=== PATIENT | male | born 1945 | race Caucasian/White ===

== ENCOUNTER 2016-07-21 22:40 | Emergency (ER) | payer OTHER ==
--- NOTE | 2016-07-21 22:51 | CPEKG ---
Heart Rate: 64 RR Interval: 938 P-R Interval: 204 QRSD Interval: 122 QT Interval: 420 QTC Interval: 434 P [place]: 33 QRS [place]: -59 T Wave [place]: 17 EKG Severity - ABNORMAL ECG - EKG Impression: SINUS RHYTHM EKG Impression: Right ventricular conduction defect EKG Impression: Poor R-wave progression EKG Impression: Low voltage standard leads Electronically Signed By: Blair Pacheco 23-Jul-2016 15:02:44
[2016-07-21 22:56] VITALS: RESP 16; TEMP 98.1
--- NOTE | 2016-07-21 23:28 | EDPHY ---
H & P Stated Complaint: Epigastric pain Time Seen by Provider: 07/21/16 23:05 HPI/ROS: HPI The patient presents with epigastric discomfort which has been present since this morning upon awakening. His pain is described as a soreness and an ache it has been constant, it is moderate in severity, does not have any radiation. It is not associated with any shortness of breath, nausea or vomiting. He has no prior history of similar. He has been feeling well otherwise.. He underwent heart scan on June 10, 2016, total calcium score was 645, which qualifies as extensive plaque burden and likelihood of at least 1 significant coronary stenosis. He has never had a cardiac catheterization REVIEW OF SYSTEMS Constitutional: No fever, no chills. Eyes: No discharge. ENT: No sore throat. Cardiovascular: No chest pain, no palpitations. Respiratory: No cough, no shortness of breath. Gastrointestinal: No abdominal pain, no vomiting. Genitourinary: No hematuria. Musculoskeletal: No back pain. Skin: No rashes. Neurological: No headache. PMHx: Hypertension, CAD based on CT scan, hypercholesterolemia obesity, obstructive sleep apnea, GERD Followed by Dr. Hwang at [facility] Hx: Previous smoker, occasional alcohol use PHYSICAL General Appearance: Alert, no distress Eyes: Pupils equal and round no pallor or injection ENT, Mouth: Mucous membranes moist Respiratory: There are no retractions, lungs are clear to auscultation Cardiovascular: Regular rate and rhythm Gastrointestinal: Abdomen is soft and non-tender, no masses, bowel sounds normal Neurological: A&O, moves all extremities Skin: Warm and dry, no rashes Musculoskeletal: Neck is supple non tender Extremities: symmetrical, full range of motion Psychiatric: Patient is oriented X 3, there is no agitation Source: Patient, Old records Exam Limitations: No limitations - Personal History Current Tetanus/Diphtheria Vaccine: Yes Current Tetanus Diphtheria and Acellular Pertussis (TDAP): Yes - Medical/Surgical History Hx Asthma: No Hx Chronic Respiratory Disease: Yes Hx Diabetes: Yes Hx Cardiac Disease: Yes Hx Renal Disease: No Hx Cirrhosis: No Hx Alcoholism: No Hx HIV/AIDS: No Hx Splenectomy or Spleen Trauma: No Other PMH: Neck surgery, cardiac disease, diabetic - Social History Smoking Status: Former smoker Constitutional: Initial Vital Signs Temperature (C) 36.7 C 07/21/16 22:54 Heart Rate 67 07/21/16 22:54 Respiratory Rate 16 07/21/16 22:54 Blood Pressure 136/82 H 07/21/16 22:54 O2 Sat (%) 96 07/21/16 22:54 O2 Delivery Mode Room Air Allergies/Adverse Reactions: No Known Allergies Allergy (Verified 07/21/16 22:53) Home Medications: Medication Instructions Recorded Unobtainable 07/21/16 Medical Decision Making - Diagnostics EKG Interpretation: EKG: Complete interpretation has been separately recorded in the [facility] archive. Summary impression: Sinus rhythm with interventricular conduction delay, no old for comparison Imaging: Chest x-ray two views is unremarkable with no acute findings, interpreted by Radiology, I have reviewed the images independently. Procedures: Bedside limited abdominal Ultrasound- performed and interpreted by me. Indication: Elevated lipase Findings: Normal appearing gallbladder, no pericholecystic fluid, no gallstones , no sonographic Hoang sign Impression: No sonographic evidence of cholelithiasis or cholecystitis ED Course/Re-evaluation: The patient was monitored in the emergency room with no events on telemetry. EKG was checked and was unremarkable, chest x-ray was also normal. Labs returned and his troponin was negative, however he did have an elevated lipase. In the setting of ongoing constant chest pain since this morning, his EKG and troponin are very reassuring that this is not ACS. He did recently increase his dose of niacin and some vitamins. However none of these should cause pancreatitis. Thus, I did a right upper quadrant ultrasound which was normal not showing any gallstones. He last drink alcohol about a week ago and had 1 beer. The cause of his pancreatitis is not exactly clear. His symptoms are very mild at this point I do not feel that he requires admission. He will be discharged from the emergency room and I have instructed him to follow up with his primary care doctor if his pain continues. He should maintain a bland diet. Differential Diagnosis: This is a 71-year-old male with known CAD based on recent coronary CT scan, hypertension, hyperlipidemia, GERD who presents with epigastric pain throughout the course of the day today. On exam, well appearing with no epigastric tenderness. Differential diagnosis includes ACS, gastritis, GERD, pancreatitis, pneumonia. - Data Points Laboratory Results: Laboratory Results 07/21/16 23:52 07/21/16 23:00 07/21/16 07/21/1617 23:52 23:52 23:00 WBC 7.53 10^3/uL 10^3/uL (3.80-9.50) RBC 4.82 10^6/uL 10^6/uL (4.40-6.38) Hgb 14.4 g/dL g/dL (13.7-17.5) Hct 41.5 % % (40.0-51.0) MCV 86.1 fL fL (81.5-99.8) MCH 29.9 pg pg (27.9-34.1) MCHC 34.7 g/dL g/dL (32.4-36.7) RDW 12.7 % % (11.5-15.2) Plt Count 160 10^3/uL 10^3/uL (150-400) MPV 8.4 fL L fL (8.7-11.7) Neut % (Auto) 67.6 % % (39.3-74.2) Lymph % (Auto) 20.7 % % (15.0-45.0) Smith % (Auto) 6.2 % % (4.5-13.0) Eos % (Auto) 4.6 % % (0.6-7.6) Baso % (Auto) 0.5 % % (0.3-1.7) Nucleat RBC Rel Count 0.0 % % (0.0-0.2) Absolute Neuts (auto) 5.08 10^3/uL 10^3/uL (1.70-6.50) Absolute Lymphs (auto) 1.56 10^3/uL 10^3/uL (1.00-3.00) Absolute Monos (auto) 0.47 10^3/uL 10^3/uL (0.30-0.80) Absolute Eos (auto) 0.35 10^3/uL 10^3/uL (0.03-0.40) Absolute Basos (auto) 0.04 10^3/uL 10^3/uL (0.02-0.10) Absolute Nucleated RBC 0.00 10^3/uL 10^3/uL (0-0.01) Immature Gran % 0.4 % % (0.0-1.1) Immature Gran # 0.03 10^3/uL 10^3/uL (0.00-0.10) PT 13.0 SEC SEC (12.0-15.0) INR 0.99 (0.83-1.16) APTT 26.9 SEC SEC (23.0-38.0) Sodium 140 mEq/L mEq/L (134-144) Potassium 4.4 mEq/L mEq/L (3.5-5.2) Chloride 106 mEq/L mEq/L (97-110) Carbon Dioxide 22 mEq/l mEq/l (22-31) Anion Gap 12 mEq/L mEq/L (8-16) BUN 24 mg/dL H mg/dL (7-23) Creatinine 1.0 mg/dL mg/dL (0.7-1.3) Estimated GFR > 60 Glucose 131 mg/dL H mg/dL (70-100) Calcium 10.0 mg/dL mg/dL (8.5-10.4) Total Bilirubin 0.7 mg/dL mg/dL (0.1-1.4) AST 26 IU/L IU/L (17-59) ALT 34 IU/L IU/L (21-72) Alkaline Phosphatase 46 IU/L IU/L (38-126) Troponin I < 0.012 ng/mL ng/mL (0-0.034) Total Protein 6.8 g/dL g/dL (6.3-8.2) Albumin 4.3 g/dL g/dL (3.5-5.0) Lipase 441.0 IU/L H IU/L (23-300) 07/21/16 07/21/16 23:00 23:00 WBC REJ RBC Not Reported Hgb Not Reported Hct Not Reported MCV Not Reported MCH Not Reported MCHC Not Reported RDW Not Reported Plt Count Not Reported MPV Not Reported Neut % (Auto) Not Reported Lymph % (Auto) Not Reported Smith % (Auto) Not Reported Eos % (Auto) Not Reported Baso % (Auto) Not Reported Nucleat RBC Rel Count Not Reported Absolute Neuts (auto) Not Reported Absolute Lymphs (auto) Not Reported Absolute Monos (auto) Not Reported Absolute Eos (auto) Not Reported Absolute Basos (auto) Not Reported Absolute Nucleated RBC Not Reported Immature Gran % Not Reported Immature Gran # Not Reported PT REJ INR REJ APTT REJ Sodium Potassium Chloride Carbon Dioxide Anion Gap BUN Creatinine Estimated GFR Glucose Calcium Total Bilirubin AST ALT Alkaline Phosphatase Troponin I Total Protein Albumin Lipase Departure - Departure Disposition: Home, Routine, Self-Care Clinical Impression: Pancreatitis, acute Condition: Good Instructions: Pancreatitis (ED), Clear Liquid Diet (ED) Additional Instructions: Please return to the emergency room if your worse in any way. Otherwise please follow-up with your regular doctor. You should maintain a clear liquid diet until your feeling better. Referrals: Blair Pacheco MD [Primary Care Provider] - As per Instructions
[2016-07-21 23:34] LABS: ATYPICAL LYMPHOCYTE FLAG 0 (0-99); FRAGMENT RBC FLAG 0 (0-99); LEFT SHIFT FLG 0 (0-99); LIPEMIA HEMOLYSIS FLAG 90 (0-99)
[2016-07-21 23:39] LABS: PLATELET CLUMPS FLAG 300 (0-99)
[2016-07-22] LABS: % IMMATURE GRANULYOCYTES 0.4 % (0.0-1.1); ABSOLUTE IMMATURE GRANULOCYTES 0.03 10^3/uL (0.00-0.10); ADD DIFF? NO; ADD MORPH? NO; ADD SCAN? NO; ATYPICAL LYMPHOCYTE FLAG 0 (0-99); FRAGMENT RBC FLAG 0 (0-99); HEMATOCRIT 41.5 % (40.0-51.0); HEMOGLOBIN 14.4 g/dL (13.7-17.5); LEFT SHIFT FLG 0 (0-99); LIPEMIA HEMOLYSIS FLAG 90 (0-99); MEAN CELL HEMOGLOBIN 29.9 pg (27.9-34.1); MEAN CELL HEMOGLOBIN CONCENTR. 34.7 g/dL (32.4-36.7); MEAN CELL VOLUME 86.1 fL (81.5-99.8); MEAN PLATELET VOLUME 8.4 fL (8.7-11.7); PLATELET CLUMPS FLAG 20 (0-99); PLATELET COUNT 160 10^3/uL (150-400); RED BLOOD CELL COUNT 4.82 10^6/uL (4.40-6.38); RED CELL DISTRIBUTION WIDTH 12.7 % (11.5-15.2)
[2016-07-22 00:04] LABS: ALANINE AMINOTRANSFERASE 34 IU/L (21-72); ALBUMIN 4.3 g/dL (3.5-5.0); ALKALINE PHOSPHATASE 46 IU/L (38-126); ANION GAP 12 mEq/L (8-16); ASPARTATE AMINOTRANSFERASE 26 IU/L (17-59); BILIRUBIN,TOTAL 0.7 mg/dL (0.1-1.4); CARBON DIOXIDE 22 mEq/l (22-31); CHLORIDE 106 mEq/L (97-110); GLOMERULAR FILTRATION RATE > 60; GLUCOSE 131 mg/dL (70-100); POTASSIUM 4.4 mEq/L (3.5-5.2); SODIUM 140 mEq/L (134-144); TOTAL PROTEIN 6.8 g/dL (6.3-8.2)
[2016-07-22 00:32] LABS: TROPONIN I < 0.012 ng/mL (0-0.034)
[2016-07-22 00:37] LABS: APTT 26.9 SEC (23.0-38.0); INR 0.99 (0.83-1.16)
[2016-07-22 00:38] VITALS: BP 131/74; PULSE 61; O2SAT 95
== END 2016-07-22 00:54 | disposition home or self-care (01) ==
DX: K85.90 Acute pancreatitis without necrosis or infection, unspecified (principal); I10 Essential (primary) hypertension; I25.10 Atherosclerotic heart disease of native coronary artery without angina pectoris; E11.9 Type 2 diabetes mellitus without complications; Z87.891 Personal history of nicotine dependence

== ENCOUNTER → 2017-07-20 | Outpatient (CLI) | payer OTHER | LOC: BMCIMAGING 13:26 | PROVIDERS: ATTEND Internal Medicine | DX: M54.2 Cervicalgia (principal); E11.9 Type 2 diabetes mellitus without complications | CPT/HCPCS: 76536-PO ==

== ENCOUNTER → 2017-08-12 | Outpatient (CLI) | payer OTHER ==
[~2017-08-12] MED LIST: IOPAMIDOL (ISOVUE-300) 100 ML BTL ONE
== END ==
LOC: FIMAGING 13:49
PROVIDERS: ATTEND Otolaryngology
DX: M85.88 Other specified disorders of bone density and structure, other site (principal)
CPT/HCPCS: 70491; Q9967